=== PATIENT | female | born 1980 | race Caucasian/White ===

== ENCOUNTER 2025-05-22 14:56 | Emergency (ER) | payer OTHER, SELFPAY ==
--- NOTE | ~2025-05-22 | XR_ITS ---
XR hand LT min 3V Ordering provider: Dale Villegas APRN History: . injury 1 hr ago, medial posterior swelling 5th mcp . Comparison: None. FINDINGS: BONES: No acute fracture or dislocation. JOINT SPACES: Well maintained. SOFT TISSUES: Unremarkable. IMPRESSION: No acute osseous abnormality left hand. Reviewed, dictated and finalized at location A.
--- OUTSIDE RECORDS SUMMARY | 2025-05-22 14:59 | XMS_ITS | Patient Health Record ---
Author Organization [facility] Address [address] [place] [address] Care Team Providers Care Assembler Carbon Brushes Name Role Phone Luis Monsalve Primary Care Provider [phone] Allergies Allergen (clinical drug ingredient) Drug/Non Drug Allergy documented on EMR Reaction Allergy Type Onset Date Status ibuprofen Ibuprofen Unknown Drug Allergy Active Penicillin Unknown Drug Allergy Active Substance with sulfonamide structure and antibacterial mechanism of action (substance) Sulfa Antibiotics Unknown Drug Allergy Active tramadol Tramadol Unknown Drug Allergy Active Reason For Referral No Information Medications Medication SIG (Take, Route, Frequency, Duration) Notes Start Date End Date Status lamoTRIgine 25 MG 1 tablet (25mg) once daily for 14 days, THEN INCREASE to 2 tablets (50mg) once daily Orally; Duration: 30 days 03/01/2025 Active hydrOXYzine HCl 50 MG 1 tablet up to 4 t imes daily as needed for anxiety/sleep - take THIS BEFORE using alprazolam Orally; Duration: 30 days 03/01/2025 Active Cetirizine HCl 10 MG 1 tablet Orally Onc e a day Active Incruse Ellipta 62.5 MCG/ACT 1 puff Inhalation Once a day Active Albuterol Sulfate HFA 108 (90 Base) MCG/ACT 1 puff as needed Inhalation every 4 hrs Active Gabapentin 300 MG 1 capsule twice vahid y Orally Active Fluticasone Propionate 50 MCG/ACT 1 spray in each nostril Nasally Twice a day Active Atorvastatin Calcium 40 MG 1 tablet Oral ly Once a day Active tiZANidine HCl 4 MG 1 tablet twice daily as needed Orally Active ALPRAZolam 0.5 MG 1 tablet once daily as needed for SEVERE anxiety/panic Orally 03/01/2025 Active Omeprazole 20 MG 1 capsule 1/2 to 1 h our before morning meal Orally Once a day Active Social History Tobacco Use: Social History Observation Description Date Details (start date - stop date) Current Smoker NA - NA Tobacco Control (Standard) Question Answer Notes Tobacco use: Current smoker How often do you smoke cigarettes? Every day How many cigarettes a day do you smoke? 6-10 How soon after you wake up do you smoke your fir st cigarette? Within 5 minutes Are you interested in quitting? Not ready to lex t Problems Problem Type SNOMED Code ICD Code Onset Dates Problem Status W/U Status Risk Notes Problem Mood disorder (13004923) Mood disorder (F39) Active confirmed Problem Posttraumatic stress disorder (27723530) PTSD (post-traumati c stress disorder) (F43.10) Active confirmed Problem Generalized anxiety disorder (54876753) SANDIE (generalized anxiety disorder) (F41.1) Active confirmed Problem Major depressive disorder (478822701) MDD (major depressive disorder) (F32.9) Active confirmed Problem Nicotine dependence (31291256) Nicotine dependence (F17.200) Active confirmed Vital Signs Height 5ft 3in in 03/01/2025 Weight 270 lbs 03/01/2025 BMI 47.82 kg/m2 03/01/2025 Encounters Encounter Location Date Provider Diagnosis [address] [address] 03/01/2025 Luis Monsalve Mood disorder F39 ; SANDIE (generalized anxiety disorder) F41.1 ; MDD (major depressive disorder) F32.9 ; PTSD (post-traumatic stress disorder) F43.10 and Nicotine dependence F17.200 Assessments Encounter Date Diagnosis (ICD Code) Assessment Notes Treatment Notes Treatment Clinical Notes Section Notes 03/01/2025 Mood disorder (ICD-10 - F39) Duration (acute/chronic), stability (controlled/uncon trolled): Chronic, uncontrolled Current medications/effic acy: No Previous medication trials: alprazolam, escitalopram and numerous other medications similar (cannot remember names), reports medications like escitalopram zombified me Current/previous therapies: Not currently or previously, interested Examination as documented - see pertinent aspects of office visit documentation. Pertinent diagnostics: NOT DISCUSSED DUE TO TIME CONSTRAINTS, WILL DISCUSS AT FUTURE VISIT - PATIENT HAS PCP Differential diagnoses: suspect BPD vs mixed anxiety/depressio n vs complex PTSD vs bipolar spectrum vs combination thereof RECOMMENDATIONS: START lamotrigine as prescribed to assist with mood/stability, hoping this will help with anger/irritabilit y, as well as depression and anxiety - educated patient/guardian on adverse effects, risks and benefits, as well as alternative treatments TAKE gabapentin twice daily on a scheduled as discussed to assist with anxiety/panic - educated patient/guardian on adverse effects, risks and benefits, as well as alternative treatments START hydroxyzine as prescribed to assist with anxiety/panic/sle ep - educated patient/guardian on adverse effects, risks and benefits, as well as alternative treatments START low dose alprazolam as prescribed, ONLY NEEDED, taper when able - educated patient/guardian on adverse effects, risks and benefits, as well as alternative treatments Continue/modify other medications as prescribed - educated patient/guardian on adverse effects, risks and benefits, as well as alternative treatments Consume well balanced diet, preferably low in saturated fats (solid at room temperature, such as butter, margarine, Crisco, etc) and low in sodium (<2,000mg per day). Consume plenty of fruits/vegetables , healthy grains/whole grains, unsaturated/healt hy fats (liquid at room temperature, such as olive oil, sunflower seed oil, canola, vegetable, etc.). Exercise regularly - Develop an exercise routine. 30 minutes of moderate exercise (walking at a brisk pace) 5 times per week is recommended. You should work hard enough to cause a sweat but still be able to talk with others while exercising. Exercise improves overall health - improves blood pressure and blood sugar, helps control weight, reduces stress, and improves mood. Practice stress reduction techniques, such as guided imagery, journaling, aromatherapy, acupuncture/acupr essure, deep breathing, etc. Practice healthy sleep hygiene - maintain regular routine, no caffeine after 1PM, no exercise 1-2 hours prior to bedtime, keep bedroom dark and cool, no TV or electronics while in bed. Consider melatonin as needed. Consider cognitive behavioral therapy for insomnia (CBT-I). Consider/Continue therapy. Consider/Continue substance cessation therapy as needed - contact office if desiring medication assisted therapy. Manage co-morbid conditions. Continue monitoring symptoms - report persistent or worsening/concern ing symptoms to the office or go to the ER. For mental health CRISIS, please reach out to 988 (National Suicide and Crisis Lifeline), 911, go to the emergency department, or contact the [facility] Crisis Unit/Team. Follow up as scheduled in 3 weeks or sooner if necessary. Follow up with PCP and/or other specialists as advised. NEXT STEP: Consider medication adjustments as needed. 03/01/2025 SANDIE (generalized anxiety disorder) (ICD-10 - F41.1) See assessment and plan for mood disorder possible OCD 03/01/2025 MDD (major depressive disorder) (ICD-10 - F32.9) See assessment and plan for mood disorder 03/01/2025 PTSD (post-traumatic stress disorder) (ICD-10 - F43.10) See assessment and plan for mood disorder 03/01/2025 Nicotine dependence (ICD-10 - F17.200) Duration (acute/chronic), stability (controlled/uncon trolled): Cigarettes, about 1 pack daily, has been smoking more recently, has been smoking since about age 13-14 - verbalized no intention to quit at this time Current medications/effic acy: N/A Previous medication trials: N/A RECOMMENDATIONS: Consider/Continue therapy. Consider/Continue substance cessation therapy as needed - contact office if desiring medication assisted therapy. Manage co-morbid conditions. Continue monitoring symptoms - report persistent or worsening/concern ing symptoms to the office or go to the ER. For mental health CRISIS, please reach out to 988 (National Suicide and Crisis Lifeline), 911, go to the emergency department, or contact the [facility] Crisis Unit/Team. Follow up as scheduled or sooner if necessary. Follow up with PCP and/or other specialists as advised. NEXT STEP: Consider MAT as needed. Plan Of Treatment No Information Insurance Providers Payer Name Payer Address Payer Phone Subscriber Number Group Number Insured Name Patient Relationship to Insured Coverage Start Date Coverage End Date [employer] [facility] [employer] Claims Department [address] [place] [address] [phone] [id number] Ivette Bullock Self - patient is the insured 5 [employer] Claims Department [address] [place] [address] [phone] [id number] Ivette Bullock Self - patient is the insured 5 Medical (General) History Medical History History ICD Code fibromyalgia Anxiety disorder depression Surgical History Surgery Date(Month/Year) gallbladder tumor broke right arm surgery
--- OUTSIDE RECORDS SUMMARY | 2025-05-22 14:59 | XMS_ITS | Continuity of Care Document ---
Author Organization [facility] Address [address] [place] [address] Phone Care Team Providers Care Oracle Ebs Architect Name Role Phone Anoop Walters MD Unavailable Unavailable Allergies, Adverse Reactions, Alerts Substance Reaction Status Criticality Sulfa (Sulfonamide Antibiotics) Active No Information Medications Medication Instructions Dosage Effective Dates (start - stop) Status Comments Vistaril 50 mg capsule take 1 capsule (50MG) by oral route every bedtime 50 MG - Active Procedures Procedure Date PREV VISIT, [facility], AGE 18-39 Advance Directives Directive Yes / No Effective Date File Name No Information Encounters Encounter Description Practice Location Reason(s) For Visit Diagnoses Date Provider Providers Copied on Encounter PREV VISIT, NEW, AGE 18-39 [facility], [address] [place] [address], [id number], tel:[phone] [facility] Physical (chief complaint) Dietary surveillance and counselingRoutine Medical ExamRoutine Medical Exam 4 Romeo Davalos. [address] [place], [place], [id number] , [place]. tel:[phone] Family History Family Member Type Diagnosis Age At Onset Father Problem (finding) Diabetes mellitus Mother Problem (finding) Diabetes mellitus Father Problem (finding) Coronary artery disease 53 Father Problem (finding) COPD Sister Problem (finding) Alive and well Mother Problem (finding) Hypertension Payers Payer name Insurance type Covered constitution party ID Authoriza tion(s) No Information Social History Type Description Quantity Date Captured Comments Alcohol Use Details Caffeine Use Details Unknown Tobacco Use Status No Information Smoking Status Current every day smoker Smoking Tobacco Use Details Cigarette: No Details Available Cigarette: 1 Packs per day Sex Female Vital Signs Date / Time: Height Weight BMI Pulse Rate Blood Pressure Temperature Respiratory Rate Body Surface Area Head Circumference BMI percentile Pulse Ox Inhaled Ox 5:01 PM 64.00 in 229.00 lbs 39.3 0 kg/m eter (2) 84 /min 125/88 mm[Hg] 98.9 F 18 /min Chief Complaint And Reason For Visit From encounter dated '07/10/2014 16:50'. Physical (chief complaint) Plan Of Treatment Date Type Action Status Goal Tobacco cessation counseling completed Referral Ordered: Physical Therapy ordered Referral Referred To: Physical Therapy Ordered: Referral: Physical Therapy. ordered Referral Ordered: LUMBAR XRAY AP AND LAT ONLY ordered Referral Ordered: MOTOR NERVE CONDUCTION TEST ordered History Of Present Illness Encounter Date Complaint History Of Prese nt Illness No Information Instructions Date Instruction Additional Infor rosemary Dietary counseling Related to Di etary surveillance counseling Decrease caloric intake Related to Dietary surveillance counseling Assessments Type Assessment Date No Information Mental Status Date Cognitive Assessment Orientation - [address] ed to time, place, person, situation.
[2025-05-22 15:06] VITALS: BP 147/95; PULSE 89; RESP 18; TEMP 36.6; O2SAT 99
--- OUTSIDE RECORDS SUMMARY | 2025-05-22 15:06 | XMS_ITS | Continuity of Care Document ---
Author Organization [facility] Address [address] [employer] [facility] [place] [address] Phone Care Team Providers Care Signal Engineer Name Role Phone Anoop Walters MD Unavailable Unavailable Allergies, Adverse Reactions, Alerts Substance Reaction Status Criticality Sulfa (Sulfonamide Antibiotics) Active No Information Medications Medication Instructions Dosage Effective Dates (start - stop) Status Comments Vistaril 50 mg capsule take 1 capsule (50MG) by oral route every bedtime 50 MG - Active Procedures Procedure Date PREV VISIT, [facility], AGE 18-39 Advance Directives Directive Yes / No Effective Date File Name No Information Encounters Encounter Description Practice Location Reason(s) For Visit Diagnoses Date Provider Providers Copied on Encounter PREV VISIT, NEW, AGE 18-39 [facility], [address] [place] [address], [id number], tel:[phone] [facility] Physical (chief complaint) Dietary surveillance and counselingRoutine Medical ExamRoutine Medical Exam 4 Romeo Davalos. [address] [place], [place], [id number] , [place]. tel:[phone] Family History Family Member Type Diagnosis Age [...] Mental Status Date Cognitive Assessment Orientation - [place] ed to time, place, person, situation.
--- OUTSIDE RECORDS SUMMARY | 2025-05-22 15:06 | XMS_ITS | Clinical Summary ---
Author Organization [facility] Address [address] [place] [address] Phone Care Team Providers Care Terrazzo Tile Maker Name Role Phone Candida Bob APRN, COPY AND PRINT ASSOCIATE Primary Care Provider Allergies Active Allergy Reactions Criticality Noted Date Comments Ibuprofen Unknown 09/08/2021 Penicillin G Rash 09/08/2021 Sulfa Antibiotics Unknown 09/08/2021 Medications albuterol 108 (90 Base) MCG/ACT Aerosol Solution take 2 Puffs by inhalation every 6 hours as needed for Cough. 6.7 g 2 Active ofloxacin (Floxin Otic) 0.3 % Solution Place 5 Drops in affected ear(s) 2 times daily. 10 mL 2 Active diclofenac (VOLTAREN) 50 MG Tablet Delayed Response Take 1 Tablet by mouth 3 times daily. 20 Tablet 2 Active Additional Information Patient not taking.Reported on 01/15/2025 HYDROcodone-acet aminophen (NORCO) 5-325 MG TabletIndication s:Pain, dental Take 1 Tablet by mouth every 6 hours as needed for Mild or more severe pain. 12 Tablet 2 Active Additional Information Patient not taking.Reported on 01/15/2025 ondansetron (ZOFRAN-ODT) 4 MG TABLET DISPERSIBLE Take 1 Tablet by mouth every 8 hours as needed for Nausea - 1st line. 10 Tablet 3 Active Additional Information Patient not taking.Reported on 01/15/2025 atorvastatin (LIPITOR) 40 MG Tablet Take 40 mg by mouth daily. Active Cetirizine HCl 10 MG Chewable Tablet Take 10 mg by mouth daily. Active fluticasone (FLONASE) 50 MCG/ACT Suspension 2 Sprays by Nasal route. 0 Active ofloxacin (OCUFLOX) 0.3 % Solution Place 1 Drop in affected eye(s) 4 times daily. Active Umeclidinium [place] (Incruse Ellipta) 62.5 MCG/ACT AEROSOL POWDER, BREATH ACTIVATED take 1 Puff by inhalation daily. Active Social History Tobacco Use Types Packs/Day Years Used Date Smoking Tobacco: Every Day Cigarettes Smokeless Tobacco: Never Alcohol Use Standard Drinks/Week Comments Never 0 (1 standard drink = 0.6 oz pur e alcohol) Comments No Sex and Gender Information Value Date Recorded Sex Assigned at Not on file Legal Sex Female 11:56 PM CDT Gender Identity Not on file Sexual Orientation Not on file Last Filed Vital Signs Vital Sign Reading Time Taken Comments Blood Pressure 138/70 02/19/2025 5:40 PM CDT Pulse 82 02/19/2025 5:40 PM CDT Temperature 36.9 C (98.4 F) 02/19/2025 5:40 PM CDT Respiratory Rate 18 02/19/2025 5:40 PM CDT Oxygen Saturation 99% 02/19/2025 5:40 PM CDT Inhaled Oxygen Concentration - - Weight 117.9 kg (260 lb) 02/19/2025 5:40 PM CDT Height 160 cm (5' 3) 02/19/2025 5:40 PM CDT Body Mass Index 46.06 02/19/2025 5:40 PM CDT Plan of Treatment Upcoming Encounters Date Type Department Care Team (Late st Contact Info) Description 08/14/2025 10:00 AM CDT Office Visit [facility] - Neurology [facility] [address] [place] [address] Walter Rios MD [address] [place] [address] Health Maintenance Due Date Last Done Comments Hepatitis C Virus (HCV) Screening 1979 Mammogram 1979 TdaP Immunization 1979 Human Papillomavirus (HPV) Immunization (1 - 3-dose series) 1994 Hepatitis B Immunization (1 of 3 - 19+ 3-dose series) 1998 Pneumococcal Immunization Co mbined (1 of 2 - PCV) 1998 Pap Smear 2000 Cervical Cancer Screening (CCS) 2009 HPV/Cotest 2009 Discussion re Starting/Frequ ency of Mammograms 2019 SARS-COV-2 Immunization ( - 2023- season) 2024 Cologuard 2024 Colonoscopy 2024 Colorectal Cancer Screening 2024 Immunochemical Fecal Occult Blood 2024 Influenza Immunization (#1) 2025 Respiratory Syncytial Virus (RSV) Immunization (Adult) (1 - 1-dose 75+ series) 2054 DTaP/Tdap/Td Immunization Discontinued 04/14/2005 Meningococcal Immunization (ACWY) Aged Out No longer eligible based on patient's age to complete this topic Rotavirus Immunization Aged Out No lo nger eligible based on patient's age to complete this topic Insurance MEDICAID [employer] Care Teams Terrazzo Tile Maker Relationship Specialty Start Date End Date Candida Bob, MASH FILTER CLOTH CHANGER, COPY AND PRINT ASSOCIATE [address] [place] [address] PCP - General Advanced Practice Nurse 4/22/25
--- OUTSIDE RECORDS SUMMARY | 2025-05-22 15:07 | XMS_ITS | Encounter Summary ---
Author Organization [facility] Address [address] [place] [address] Care Team Providers Care College Associate Name Role Phone Candida Bob CRIB CLERK Primary Care Provider Encounter Details Date Type Department Care Team ([facility] st Contact Info) Description 05/22/2025 Plan of Care Documentation [facility] Physical Therapy [address] [place] [id number] Social History Tobacco Use Types Packs/Day Years Used Date Smoking Tobacco: Every Day Cigarettes Smokeless Tobacco: Never Alcohol Use Standard Drinks/Week Comments Not Currently 0 (1 standard drink = 0.6 oz pur e alcohol) AUDIT-C Answer Date Recorded Frequency of Alcohol Consumption Not on file 03/20/2024 Q2: How many drinks containi ng alcohol do you have on a typical day when you are drinking? Patient does not drink Frequency of Binge Drinking Not on file 03/08 Personal Safety Answer Date Recorded Have you ever been in or are you currently in a harmful physical or emotional relationship or is someone making you feel afraid or unsafe? Denies 02/20/2025 Comments No Sex and Gender Information Value Date Recorded Sex Assigned at Not on file Legal Sex Female 4:41 PM HALL WORKER Gender Identity Not on file Sexual Orientation Not on file documented as of this encounter Plan of Treatment Not on file documented as of this encounter Visit Diagnoses Not on filedocumented in this encounter Care Teams College Associate Relationship Specialty Start Date End Date Candida Bob, BHAVESH [address] [address] PCP - General Nurse Practitioner 02/20/25 documented as of this encounter
--- OUTSIDE RECORDS SUMMARY | 2025-05-22 15:07 | XMS_ITS | Referral Summary ---
Author Organization [facility] Address [address] [place] [address] Care Team Providers Care Airconditioning Engineer Name Role Phone Candida Bob NP Primary Care Provider Encounters Date Type Department Care Team Description 05/22/2025 Plan of Care Documentation [facility] [address] [place] [id number] 05/22/2025 8:15 AM CDT Therapy [facility] [address] [place] [address] [phone] Jagruti Blevins, PT Electrocution, subsequent encounter (Primary Dx); Other symptoms and signs involving the musculoskeletal system 05/15/2025 8:45 AM CDT Therapy [facility] [address] [place] [address] [phone] Aleta Zhao, PT Electrocution, subsequent encounter (Primary Dx) 05/03/2025 7:45 AM CDT Therapy [facility] [address] [place] [address] [id number] Aleta Zhao, PT Electrocution, subsequent encounter (Primary Dx) 05/03/2025 12:54 PM CDT - 05/03/2025 11:59 PM CDT Hospital Encounter [facility] [address] [place] [address] [phone] Other forms of dyspnea; Personal history of COVID-19; Electric shock, initial encounter; Precordial pain Discharge Disposition: Discharge to home or self care 04/11/2025 10:00 AM CDT Therapy [facility] [address] [place] [address] [phone] Savannah Sawant, WILLIAMS Electrocution, subsequent encounter (Primary Dx); Cognitive impairment 04/11/2025 11:00 AM CDT Therapy [facility] [address] [place] [address] [phone] Jagruti Blevins, PT Electrocution, subsequent encounter (Primary Dx); Other symptoms and signs involving the musculoskeletal system 04/09/2025 11:00 AM CDT Therapy [facility] [address] [place] [address] [id number] Jagruti Blevins, PT Electrocution, subsequent encounter (Primary Dx); Other symptoms and signs involving the musculoskeletal system 04/05/2025 Plan of Care Documentation [facility] [address] [place] [address] [id number] 04/04/2025 9:30 AM CDT Therapy [facility] [address] [place] [address] [id number] Savannah Sawant, WILLIAMS Cognitive impairment (Primary Dx); Electrocution, subsequent encounter 04/03/2025 10:15 AM CDT Therapy [facility] [address] [place] [address] [id number] Jagruti Blevins, PT Electrocution, subsequent encounter (Primary Dx); Other symptoms and signs involving the musculoskeletal system 03/28/2025 10:30 AM CDT Therapy [facility] [address] [place] [address] [phone] Aleta Zhao, PT Electrocution, subsequent encounter (Primary Dx) 03/26/2025 11:15 AM CDT Therapy [facility] [address] [place] [address] [id number] Aleta Zhao, PT Other symptoms and signs involving the musculoskeletal system (Primary Dx); Electrocution, subsequent encounter 03/12/2025 11:00 AM CDT Therapy [facility] [address] [place] [address] [phone] Jagruti Blevins, PT Other symptoms and signs involving the musculoskeletal system (Primary Dx) 03/01/2025 Plan of Care Documentation [facility] [address] [place] [address] [id number] 03/01/2025 8:30 AM CDT Therapy [facility] [address] [place] [address] Jagruti Blevins, PT Electrocution, subsequent encounter (Primary Dx) 03/01/2025 1:15 PM CDT - 03/01/2025 11:59 PM CDT Hospital Encounter [facility] [address] [place] [address] Electrocution, subsequent encounter Discharge Disposition: Discharge to home or self care 02/28/2025 Telephone [facility] [address] [place] [address] Dawna Manzano 02/20/2025 3:13 PM CDT - 02/20/2025 4:08 PM CDT Emergency [facility] [address] [place] [address] Electrocution (Primary Dx); Left cervical radiculopathy Discharge Disposition: Discharge to home or self care from Last 3 Months Allergies Active Allergy Reactions Criticality Noted Date Comments Ibuprofen Unknown 09/20/2019 Penicillin Hives Medium 04/23/2016 Sulfa (Sulfonamide Antibiotics) Hives Medium 04/23/2016 Sulfamethoxazole-Trime thoprim Other (See comments) Low 05/18/2009 Note: PT STATES SHE ONLY ALLERGIC TO THIS NOT , CODINE, ERR, VICODEN OR DARVOCET . [facility] Medium 04/23/2016 Medications fluticasone propionate (FLONASE) 50 mcg/actuation nasal sprayIndications: Seasonal allergic rhinitis due to pollen Administer 2 sprays into each nostril daily 16 g 05/19/20 22 Active cetirizine (ZyrTEC) 10 mg tabletIndications :Seasonal allergic rhinitis due to pollen Take 1 tablet (10 mg total) by mouth daily 30 tablet 05/19/20 22 Active ergocalciferol (VITAMIN D) 50,000 unit capsule Take 1 capsule every week by oral route. 01/25/20 24 Active atorvastatin (LIPITOR) 40 mg tablet Take 1 tablet every day by oral route. 01/25/[address] (NexIUM) 20 mg capsule Take 1 capsule (20 mg total) by mouth daily before breakfast Active oxyCODONE-acetami nophen (PERCOCET) 5-325 mg per tablet Take 1 tablet by mouth every 8 (eight) hours as needed for pain 20 tablet 03/28/20 24 Active Narcan 4 mg/actuation spray,non-aerosol 03/20/20 24 Active triamcinolone (KENALOG) 0.1 % cream APPLY TOPICALLY TO THE AFFECTED AREA TWICE DAILY NEEDED FOR ITCHING 03/29/20 24 Active methocarbamoL (ROBAXIN) 500 mg tabletIndications :Left cervical radiculopathy Take 1 tablet (500 mg total) by mouth 3 (three) times a day Take as directed to relax muscles. Collaborating physician Alexey Davalos MD 30 tablet 02/21/20 25 Active Active Problems Problem Noted Date Diagnosed Date Generalized anxiety disorder 03/26/2025 Posttraumatic stress disorder 03/26/2025 Major depressive disorder 03/26/2025 Mood disorder 03/26/2025 Nicotine dependence 03/26/2025 Class 3 severe obesity due t o excess calories with serious comorbidity and body mass index (BMI) of 45.0 to 49.9 in adult 03/26/2025 COPD (chronic obstructive pulmonary disease) Fibromyalgia 03/26/2025 Rheumatoid arthritis 03/26/2025 Mixed hyperlipidemia 03/26/2025 Electrocution 02/20/2025 Left cervical radiculopathy 02/20/2025 Gallstones 03/08/2024 Cervical lymphadenitis 01/19/2024 Chest wall muscle strain, initial encounter 04/09 Seasonal allergic rhinitis due to pollen 022 Assessment & Plan (05/19/2022 3:34 PM CDT): Flonase 2 sprays into each nostril while looking down over the sink, do not sniff in or blow nose after use for at least 30 minutes Cetirizine daily Blood allergy testing, call with results Dysfunction of both eustachian tubes 10/15/2020 Acute exacerbation of chronic low back pain 07/09 Right-sided low back pain with right-sided sciat ica 07/25/2020 Resolved Problems Problem Noted Date Diagnosed Date Resolved Date Acute right otitis media 01/19/2024 Acute bronchitis 05/03/2023 03/26/2025 Acute maxillary sinusitis 10/15/2020 Immunizations Immunization Administration Dates Next Due Hep A, Adult 09/28/2000 Td, adsorbed 04/14/2005 Social History Tobacco Use Types Packs/Day Years Used Date Smoking Tobacco: Every Day Cigarettes Smokeless Tobacco: Never Tobacco Cessation:Ready to Q uit: Not Asked; Counseling Given: Not Answered Alcohol Use Standard Drinks/Week Comments Not Currently [...] on file 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 Gender Identity Not on file Sexual Orientation Not on file Last Filed Vital Signs Vital Sign Reading Time Taken Comments Blood Pressure 124/87 02/20/2025 4:07 PM CDT Pulse 84 02/20/2025 4:07 PM CDT Temperature 36.8 C (98.3 F) 02/20/2025 1:56 PM CDT Respiratory Rate 18 02/20/2025 4:07 PM CDT Oxygen Saturation 98% 02/20/2025 4:07 PM CDT Inhaled Oxygen Concentration - - Weight 117.9 kg (260 lb) 02/20/2025 1:56 PM CDT Height 160 cm (5' 3) 04/02/2024 3:49 PM CDT Body Mass Index 46.06 04/02/2024 3:49 PM CDT Plan of Treatment Not on file Procedures Procedure Name Priority Date/Time Associated Diagnosis Comments TRANSTHORACIC ECHO (TTE) COMPLETE W DOPPLER/CF WO CONTRAST Routine 05/03/2025 2:12 PM CDT Other forms of dyspnea Personal history of COVID-19 Electric shock, initial encounter Precordial pain CTA HEAD NECK W WO CONTRAST Schedule SJ, Read SJ (Appt Today, Awaiting Results) 03/01/2025 2:06 PM CDT Electrocution, subsequent encounter EGFR STAT 02/20/2025 2:34 PM CDT DIFFERENTIAL AUTO STAT 02/20/2025 2:3 4 PM CDT COMPREHENSIVE METABOLIC PANEL STAT 02/20/2025 2:34 PM CDT CBC WITH AUTO DIFFERENTIAL STAT 02/20/2025 2:34 PM CDT TROPONIN T HIGH-SENSITIVITY STAT 02/20/2025 2:34 PM CDT ECG 12-LEAD STAT 02/20/2025 2:28 PM CDT from Last 3 Months Results * TRANSTHORACIC ECHO (TTE) COMPLETE W DOPPLER/CF WO CONTRAST (05/03/2025 2:12 PM CDT) Estimated EF % % CONS SCIMAGE EF Mod BP 72 % CONS SCIMAGE Anatomical Region Laterality Modality Ultrasound 05/03/2025 1:25 PM CDT Narrative 05/03/2025 3:06 PM CDT [address] [address] Echocardiogram Report Patient Name: CURRY BRITT : 1980 Study Date: 05/03/2025 1:25:29 PM Gender: F Tech: AA Location: echo room 1 Ref Provider: TRANSCRIBED ORDER, PROVIDER Height(Cm): 160 BSA: 2.29 Weight(Kg): 117.9 Quality: Good Order Provider: TRANSCRIBED ORDER, PROVIDER PROCEDURES: Echocardiographic Report: Transthoracic echocardiogram with complete 2D, M-Mode, and color Doppler examination. INDICATIONS: sob, electricuted, R06.09 Other forms of dyspnea, Z86.16 Personal history of COVID-19, T75.4XXA Electrocution, initial encounter, and R07.2 Precordial pain. MEASUREMENTS: 2D/MM Value Range Doppler Value Range EF Teich 2D 43.1 % [ 54.0 - 74.0 ] JOSEPH Vmax 3.19 cm2 EF Mod BP 72 % [ 54 - 74 ] AV Mean PG 4 mmHg Estimated EF % AV Peak John 1.43 m/s [ 1.00 - 1.70 ] LVIDd 2D 3.71 cm [ 3.80 - 5.20 ] AV VTI 24.64 cm LVIDs 2D 2.94 cm [ 2.20 - 3.50 ] LVOT Diam 2.20 cm LVPWd 2D 1.27 cm [ 0.60 - 0.90 ] LVOT Peak John 1.20 m/s [ 0.70 - 1.10 ] IVSd 2D 1.12 cm [ 0.60 - 0.90 ] LVOT VTI 23.05 cm LA Dimension MM 4.22 cm [ 2.70 - 3.80 ] MV E Peak John 0.78 m/s [ 0.60 - 1.30 ] AoR Diam MM 3.44 cm [ 2.70 - 3.70 ] MV A Peak John 0.72 m/s [ 1.00 - 1.20 ] ACS MM 2.42 cm MV Mean PG 2 mmHg MV PHT 59 msec [ 20 - 100 ] MVA 3.80 MV Decel Time 204 msec [ 104 - 258 ] PV Peak John 1.02 m/s [ 0.40 - 0.80 ] TR Peak John 2.19 m/s [ 1.00 - 2.80 ] TR Peak PG 19 mmHg RVSP 24.00 mmHg [ 10.00 - 36.00 ] E` 0.13 m/s E/E` 5.83 [ <= 10.00 ] PA Pressure 5.00 mmHg [ 10.00 - 36.00 ] 2D/MM Value Range Doppler Value Range - FINDINGS: Atrial Septum: Normal atrial septum. Left Ventricle: Normal left ventricular size. Mild concentric left ventricular hypertrophy. Hyperdynamic left ventricular function. No focal wall motion abnormalities. Normal left ventricular diastolic function. Ejection fraction is measured at 72 %. Left Atrium: There is mild enlargement of left atrium. Right Ventricle: Normal right ventricular size. Normal right ventricular systolic function. Right Atrium: The right atrium is normal in size. Aortic Valve: Normal structure of the aortic valve. No evidence of hemodynamically significant aortic stenosis by Doppler. Mitral Valve: Normal structure of the mitral valve. Trivial regurgitation of the mitral valve. Pulmonic Valve: Normal structure of the pulmonic valve. No evidence of pulmonic regurgitation. Tricuspid Valve: Normal structure of the tricuspid valve. Normal right ventricular systolic pressure. Trivial regurgitation in the tricuspid valve. Pericardium: Normal pericardium with no significant pericardial effusion. Aorta: Normal aortic root. Ascending aorta is normal. Descending aorta is normal. IVC: Normal size and normal respiratory collapse consistent with normal right atrial pressure (<5 mmHg). Pulmonary Artery: Pulmonary artery not well visualized. CONCLUSIONS: Normal left ventricular size. Mild concentric left ventricular hypertrophy. Hyperdynamic left ventricular function. No focal wall motion abnormalities. Normal left ventricular diastolic function. Ejection fraction is measured at 72 %. Normal right ventricular size. Normal right ventricular systolic function. There is mild enlargement of left atrium. Normal structure of the mitral valve. Trivial regurgitation of the mitral valve. Normal structure of the aortic valve. No evidence of hemodynamically significant aortic stenosis by Doppler. Normal structure of the tricuspid valve. Normal right ventricular systolic pressure. Trivial regurgitation in the tricuspid valve. Normal pericardium with no significant pericardial effusion. Electronically Signed By: Theresa Urrutia MD 05/03/2025 3:06:23 PM CDT Procedure Note Theresa Urrutia MD - 05/03/[address] [place] [address] Echocardiogram Report Patient Name: CURRY BRITT : 1980 Study Date: 05/03/2025 1:25:29 PM Gender: F Tech: AA Location: echo room 1 Ref Provider: TRANSCRIBED ORDER, PROVIDER Height(Cm): 160 BSA: 2.29 Weight(Kg): 117.9 Quality: Good Order Provider: TRANSCRIBED ORDER, PROVIDER PROCEDURES: Echocardiographic Report: Transthoracic echocardiogram with complete 2D, M-Mode, and color Dopplerexamination. INDICATIONS: sob, electricuted, R06.09 Other forms of dyspnea, Z86.16 Personal historyof COVID-19, T75.4XXA Electrocution, initial encounter, and R07.2 Precordial pain. MEASUREMENTS: 2D/MM Value Range Doppler ValueRange EF Teich 2D 43.1 % [ 54.0 - 74.0 ] JOSEPH Vmax 3.19cm2 EF Mod BP 72 % [ 54 - 74 ] AV Mean PG 4 mmHg Estimated EF % AV Peak John 1.43 m/s[ 1.00 - 1.70 ] LVIDd 2D 3.71 cm [ 3.80 - 5.20 ] AV VTI 24.64cm LVIDs 2D 2.94 cm [ 2.20 - 3.50 ] LVOT Diam 2.20cm LVPWd 2D 1.27 cm [ 0.60 - 0.90 ] LVOT Peak John 1.20 m/s[ 0.70 - 1.10 ] IVSd 2D 1.12 cm [ 0.60 - 0.90 ] LVOT VTI 23.05cm LA Dimension MM 4.22 cm [ 2.70 - 3.80 ] MV E Peak John 0.78 m/s[ 0.60 - 1.30 ] AoR Diam MM 3.44 cm [ 2.70 - 3.70 ] MV A Peak John 0.72 m/s[ 1.00 - 1.20 ] ACS MM 2.42 cm MV Mean PG 2 mmHg MV PHT 59 msec [ 20 - 100 ] MVA 3.80 MV Decel Time 204 msec [ 104 - 258 ] PV Peak John 1.02 m/s [ 0.40 - 0.80 ] TR Peak John 2.19 m/s [ 1.00 - 2.80 ] TR Peak PG 19 mmHg RVSP 24.00 mmHg [ 10.00 - 36.00 ] E` 0.13 m/s E/E` 5.83 [ <= 10.00 ] PA Pressure 5.00 mmHg [ 10.00 - 36.00 ] 2D/MM Value Range Doppler ValueRange - FINDINGS: Atrial Septum: Normal atrial septum. Left Ventricle: Normal left ventricular size. Mild concentric left ventricularhypertrophy. Hyperdynamic left ventricular function. No focal wall motion abnormalities. Normal leftventricular diastolic function. Ejection fraction is measured at 72 %. Left Atrium: There is mild enlargement of left atrium. Right Ventricle: Normal right ventricular size. Normal right ventricular systolicfunction. Right Atrium: The right atrium is normal in size. Aortic Valve: Normal structure of the aortic valve. No evidence of hemodynamicallysignificant aortic stenosis by Doppler. Mitral Valve: Normal structure of the mitral valve. Trivial regurgitation of the mitralvalve. Pulmonic Valve: Normal structure of the pulmonic valve. No evidence of pulmonicregurgitation. Tricuspid Valve: Normal structure of the tricuspid valve. Normal right ventricular systolicpressure. Trivial regurgitation in the tricuspid valve. Pericardium: Normal pericardium with no significant pericardial effusion. Aorta: Normal aortic root. Ascending aorta is normal. Descending aorta isnormal. IVC: Normal size and normal respiratory collapse consistent with normal rightatrial pressure (<5 mmHg). Pulmonary Artery: Pulmonary artery not well visualized. CONCLUSIONS: Normal left ventricular size. Mild concentric left ventricularhypertrophy. Hyperdynamic left ventricular function. No focal wall motion abnormalities. Normal leftventricular diastolic function. Ejection fraction is measured at 72 %. Normal right ventricular size. Normal right ventricular systolicfunction. There is mild enlargement of left atrium. Normal structure of the mitral valve. Trivial regurgitation of the mitralvalve. Normal structure of the aortic valve. No evidence of hemodynamicallysignificant aortic stenosis by Doppler. Normal structure of the tricuspid valve. Normal right ventricular systolicpressure. Trivial regurgitation in the tricuspid valve. Normal pericardium with no significant pericardial effusion. Electronically Signed By: Theresa Urrutia MD 05/03/2025 3:06:23 PM CDT us Provider Transcribed Order CV ECHO PROCEDURES Fi nal Result * CTA Head Neck W WO Contrast (03/01/2025 2:06 PM CDT) Anatomical Region Laterality Modality Head and Neck N/A Computed Tomogra phy 03/01/2025 2:20 PM CDT Narrative 03/01/2025 2:37 PM CDT EXAM DESCRIPTION: CTA HEAD NECK W WO CONTRAST REASON FOR STUDY: Electrocution subsequent encounter Left facial droop, slurred speech and unsteady gait since 02/20/25, patient unable to remove facial piercing TECHNIQUE: Axial images were first obtained through the brain without contrast. Axial dynamic scanning technique with dynamic contrast enhancement through the intracranial and extracranial carotid and vertebral arteries. Multiplanar reconstruction. All stenosis measurements are based on NASCET criteria. 3D MIP images rendered on scanning unit and reviewed at time of interpretation. Automated exposure control was used as a dose optimization technique for this examination. CONTRAST TYPE/DOSE: 100mL of IOVERSOL 350 MG IODINE/ML INTRAVENOUS SYRINGE injected via intravenous COMPARISON: None available. FINDINGS: BRAIN No intracranial hemorrhage or shift. The size and configuration of the ventricles and sulci normal for the patient's age. There is no hydrocephalus. The basilar cisterns are maintained. The bilateral globes are symmetric. Left sphenoid sinus right maxillary sinus floor polypoid mucosal thickening. Near completely opacified bilateral mastoid air cells subtle opacification of the left middle ear. The temporomandibular joints are symmetrically placed. No depressed calvarial fracture. CAROTID CTA Assessment is further limited by artifact relating to the patient's body habitus. There is a three-vessel aortic arch. The origins of the great vessels are patent. The right common carotid artery is patent. No significant plaque at the right carotid bifurcation/proximal cervical ICA, essentially 0% stenosis by NASCET criteria. Medialized course of the proximal right cervical ICA, patent to the level of the skull base. The left common carotid artery is patent. No significant plaque at the left carotid bifurcation/proximal cervical ICA, essentially 0% stenosis by NASCET criteria. The remainder of the left cervical ICA is patent to the level of the skull base. The right vertebral artery is diminutive in caliber when compared to the contralateral side from its origin to the level of the skull base and commonly developmental. Portions of the bilateral vertebral arteries are not well visualized due to artifact relating to patient's body habitus. Both vertebral arteries are grossly patent from their origin to the level of the skull base. Lung apices with pulmonary emphysema. No focal pneumonic consolidation. The dental amalgam related streak artifact limits the assessment of the adjacent structures including the oral cavity and oropharynx. Multiple of the bilateral teeth are missing. Note made of a few nonspecific bilateral cervical chain lymph nodes. For example right level 2A 1.1 x 0.8 cm. INTRACRANIAL VESSELS The evaluation is limited by the timing of the contrast bolus. The right internal carotid artery petrous, cavernous and supraclinoid segments are patent. The left in internal carotid artery petrous, cavernous and supraclinoid segments are patent. The right anterior and middle cerebral artery proximal branches are patent. The left anterior and middle cerebral artery proximal branches are patent. The intradural segment of the non dominant right vertebral artery becomes even smaller in size after the origin of PICA. The dominant left vertebral artery is patent. The basilar artery is patent. The proximal segments of the bilateral posterior cerebral arteries are patent. IMPRESSION: BRAIN: 1. No acute intracranial hemorrhage or midline shift. 2. Further evaluation with MRI as clinically indicated. 3. Previous imaging studies are not available for comparison. An addendum can be made once priors are provided. INTRACRANIAL CTA: No intracranial large vessel occlusion. CAROTID CTA: 1. The bilateral common carotid arteries and cervical internal carotid arteries are patent. 2. The vertebral arteries are grossly patent. 3. Additional findings as above. THIS IS AN ELECTRONICALLY VERIFIED FINAL REPORT 03/01/2025 2:37 PM - Electronically signed by Steven Vazquez D.O. AP: AP Report ID: [id number] Reading Location: [id number] Procedure Note Steven Vazquez, DO - 03/01/2025 EXAM DESCRIPTION: CTA HEAD NECK W WO CONTRAST REASON FOR STUDY: Electrocution subsequent encounter Left facial droop, slurred speech and unsteady gait since 02/20/25, patient unable to remove facial piercing TECHNIQUE: Axial images were first obtained through the brain without contrast. Axial dynamic scanning technique with dynamic contrast enhancement throughthe intracranial and extracranial carotid and vertebral arteries. Multiplanar reconstruction. All stenosis measurements are based on NASCET criteria. 3D MIP images rendered on scanning unit and reviewed at time of interpretation. Automated exposure control was used as a dose optimization technique forthis examination. CONTRAST TYPE/DOSE: 100mL of IOVERSOL 350 MG IODINE/ML INTRAVENOUSSYRINGE injected via intravenous COMPARISON: None available. FINDINGS: BRAIN No intracranial hemorrhage or shift. The size and configuration of the ventricles and sulci normal for the patient's age. There is no hydrocephalus. The basilar cisterns are maintained. The bilateral globes are symmetric. Left sphenoid sinus right maxillarysinus floor polypoid mucosal thickening. Near completely opacified bilateral mastoid air cells subtle opacification of the left middle ear. The temporomandibular joints are symmetrically placed. No depressed calvarial fracture. CAROTID CTA Assessment is further limited by artifact relating to the patient's body habitus. There is a three-vessel aortic arch. The origins of the great vessels are patent. The right common carotid artery is patent. No significant plaque at theright carotid bifurcation/proximal cervical ICA, essentially 0% stenosis byNASCET criteria. Medialized course of the proximal right cervical ICA, patent tothe level of the skull base. The left common carotid artery is patent. No significant plaque at theleft carotid bifurcation/proximal cervical ICA, essentially 0% stenosis byNASCET criteria. The remainder of the left cervical ICA is patent to the levelof the skull base. The right vertebral artery is diminutive in caliber when compared to the contralateral side from its origin to the level of the skull base andcommonly developmental. Portions of the bilateral vertebral arteries are not well visualized due to artifact relating to patient's body habitus. Bothvertebral arteries are grossly patent from their origin to the level of the skullbase. Lung apices with pulmonary emphysema. No focal pneumonic consolidation.The dental amalgam related streak artifact limits the assessment of theadjacent structures including the oral cavity and oropharynx. Multiple of the bilateral teeth are missing. Note made of a few nonspecific bilateral cervical chain lymph nodes. For example right level 2A 1.1 x 0.8 cm. INTRACRANIAL VESSELS The evaluation is limited by the timing of the contrast bolus. The right internal carotid artery petrous, cavernous and supraclinoidsegments are patent. The left in internal carotid artery petrous, cavernous and supraclinoid segments are patent. The right anterior and middle cerebral artery proximal branches arepatent. The left anterior and middle cerebral artery proximal branches arepatent. The intradural segment of the non dominant right vertebral artery becomeseven smaller in size after the origin of PICA. The dominant left vertebralartery is patent. The basilar artery is patent. The proximal segments of the bilateral posterior cerebral arteries are patent. IMPRESSION: BRAIN: 1. No acute intracranial hemorrhage or midline shift. 2. Further evaluation with MRI as clinically indicated. 3. Previous imaging studies are not available for comparison. Anaddendum can be made once priors are provided. INTRACRANIAL CTA: No intracranial large vessel occlusion. CAROTID CTA: 1. The bilateral common carotid arteries and cervical internal carotid arteries are patent. 2. The vertebral arteries are grossly patent. 3. Additional findings as above. THIS IS AN ELECTRONICALLY VERIFIED FINAL REPORT 03/01/2025 2:37 PM - Electronically signed by Steven Vazquez D.O. AP: AP Report ID: [id number] Reading Location: [place] [address] Jorge Luis Johnson MD IMG CT PROCEDURES Final Resul t * Troponin T high-sensitivity (02/20/2025 2:34 PM CDT) Trop T hs <6 <=14 ng/L Comment: Interpretive Data For further hscTnT resources including the diagnostic algorithm and an aid in interpretation, copy and paste this link: https://nrl.testcatalog.org/show/hsTrop Current Interpretive Data last revised 2020. Blood 02/20/2025 2:34 PM CDT 02/20/2025 2:38 PM CDT Kush GRANT LAB BLOOD ORDERABLES Final R esult JOSE [facility] [place] 1 [facility] [place] [address] * eGFR (02/20/2025 2:34 PM CDT) eGFR >90 >=60 mL/min/1. 73 m2 Comment: Interpretive Data Reference Interval Normal >/= 90 mL/min/1.73m2 Mildly decreased* 60 - 89 mL/min/1.73m2 Mildly to moderately decreased 45 - 59 mL/min/1.73m2 Moderately to severely decreased 30 - 44 mL/min/1.73m2 Severely decreased 15 - 29 mL/min/1.73m2 Kidney Failure < 15 mL/min/1.73m2 *Relative to young adult level Estimated glomerular filtration rate is determined by the 2020 CKD-EPI equation recommended by the National Kidney Foundation (A Unifying Approach to GFR Estimation: Recommendations of the NKF-ASK Task Force on Reassessing the Inclusion of Race in Diagnosing Kidney Disease, JASN 2020). The CKD-EPI equation should not be used for patients with unstable renal function and has not been validated in children and those over 70. Current interpretive data was last reviewed 2021. Blood 02/20/2025 2:34 PM CDT 02/20/2025 2:38 PM CDT us Kush GRANT LAB BLOOD ORDERABLES Final R esult JOSE [facility] ([place]) 1 [facility] Department of Laboratories [place], [place] [id number] * (ABNORMAL) Differential, auto (02/20/2025 2:34 PM CDT) Pathologist [facility] Neutrophil abs 5.34 1.50 - 6.50 K/cumm Imm gran abs 0.05 0.00 - 0.10 K/cumm [facility]) Lymphocyte abs 2.93 0.80 - 3.30 K/cumm [facility] ([place]) Monocyte abs 0.50 0.20 - 0.80 K/cumm [facility]) Eosinophil abs 0.38 0.00 - 0.50 K/cumm [facility]) Basophil abs 0.16(H) 0.00 - 0.10 K/cumm [facility]) Neutrophil pct 57.1 % [facility] ([place]) Comment: Interpretive Data Percent cell count reference ranges are not reported, since discordance with absolute values may lead to misinterpretation of CBC data. Current Interpretive Data was last revised on 2018. Imm gran pct 0.5 % [facility] ([place]) Comment: Interpretive Data Percent cell count reference ranges are not reported, since discordance with absolute values may lead to misinterpretation of CBC data. Current Interpretive Data was last revised on 2018. Lymphocyte pct 31.3 % KEANU [facility] ([place]) Comment: Interpretive Data Percent cell count reference ranges are not reported, since discordance with absolute values may lead to misinterpretation of CBC data. Current Interpretive Data was last revised on 2018. Monocyte pct 5.3 % [facility] ([place]) Comment: Interpretive Data Percent cell count reference ranges are not reported, since discordance with absolute values may lead to misinterpretation of CBC data. Current Interpretive Data was last revised on 2018. Eosinophil pct 4.1 % KEANU [facility] ([place]) Comment: Interpretive Data Percent cell count reference ranges are not reported, since discordance with absolute values may lead to misinterpretation of CBC data. Current Interpretive Data was last revised on 2018. Basophil pct 1.7 % [facility] ([place]) Comment: Interpretive Data Percent cell count reference ranges are not reported, since discordance with absolute values may lead to misinterpretation of CBC data. Current Interpretive Data was last revised on 2018. Blood 02/20/2025 2:34 PM CDT 02/20/2025 2:38 PM CDT us Kush GRANT LAB BLOOD ORDERABLES Final R esult JOSE [facility]GD[facility] ([place]) 1 [facility] Department [place] [address] * (ABNORMAL) CBC with auto differential (02/20/2025 2:34 PM CDT) WBC 9.36 3.80 - 9.90 K/cumm Hgb 14.4 11.9 - 15.5 g/dL [facility] Hct 43.1 35.6 - 45.5 % [facility] Plt 281 150 - 400 K/cumm [facility]) MPV 9.2 9.1 - 12.3 fL [facility] RBC 4.63 3.90 - 5.20 M/cumm [facility]) MCV 93.1 81.3 - 96.4 fL [facility] MCH 31.1 27.1 - 33.3 pg [facility] MCHC 33.4 32.3 - 35.7 g/dL [facility] RDW CV 14.1 11.1 - 14.9 % [facility] RDW SD 47.6 35.7 - 48.1 fL [facility]) NRBC abs 0.02(H) 0.00 - 0.01 K/cumm [facility] Blood 02/20/2025 2:34 PM CDT 02/20/2025 2:38 PM CDT us Kush GRANT LAB BLOOD ORDERABLES Final R esult [facility] ([place] 1 [facility] [place] [address] * (ABNORMAL) Comprehensive metabolic panel (02/20/2025 2:34 PM CDT) Sodium 137 135 - 145 mmol/L Potassium, pl 3.8 3.3 - 4.9 mmol/L [facility] Chloride 105 97 - 110 mmol/L [facility] CO2 21(L) 22 - 32 mmol/L [facility] Anion gap 11 2 - 15 mmol/L [facility] BUN 7 6 - 25 mg/dL [facility] Creatinine 0.74 0.60 - 1.10 mg/dL [facility] Glucose 117 70 - 199 mg/dL [facility] Comment: Interpretive Data Fasting glucose >/= 126 mg/dl is diagnostic for diabetes. Fasting is defined as no caloric intake for at least 8 hours. Fasting glucose between 100 mg/dl to 125 mg/dl is diagnostic of prediabetes. In a patient with classic symptoms of hyperglycemia or hyperglycemic crisis, a random glucose >/= 200 mg/dl is diagnostic for diabetes. In the absence of unequivocal hyperglycemia, results should be confirmed by repeat testing. The classification and Diagnosis of Diabetes Diabetes Care 2021; 46: S19-S40. Current interpretive data was last revised 2022. Calcium 8.8 8.5 - 10.3 mg/dL [facility] Bilirubin, total <0.2 0.1 - 1.2 mg/dL [facility] Protein, pl 7.0 6.5 - 8.5 g/dL [facility]) Albumin 4.0 3.5 - 5.0 g/dL [facility] Alk phos 100 40 - 130 Units/L [facility] ALT 45 7 - 45 Units/L [facility] AST 34 10 - 45 Units/L [facility]) Comment:Slightly Hemolyzed S pecimen Blood 02/20/2025 2:34 PM CDT 02/20/2025 2:38 PM CDT us Kush GRANT LAB BLOOD ORDERABLES Final R esult [facility] ([place] 1 [facility] [place] [address] * ECG 12 lead (02/20/2025 2:28 PM CDT) 02/20/2025 2:28 PM CDT Narrative [facility] - 02/20/2025 4:09 PM CDT Vent Rate: 83 bpm RR Interval: 717 msec [place] Interval: 162 msec QRS Duration: 83 msec QT Interval: 356 msec QTC Interval: 396 msec P-R-T [place]: 25 - 4 - 19 degrees IMPRESSION: SINUS RHYTHM LOW QRS VOLTAGE IN PRECORDIAL LEADS [QRS DEFLECTION < 1.0 mV IN CHEST LEADS] BORDERLINE ECG NO CHANGE FROM PREVIOUS TRACING NOTED Electronically Signed By: Yonas Hebert MD us Kush GRANT ECG ORDERABLES Final Result [facility] from Last 3 Months Insurance [facility] Care Teams Airconditioning Engineer Relationship Specialty Start Date End Date Candida Bob NP [address] [place] [address] [place] [address] PCP - General Nurse Practitioner 02/20/25
--- OUTSIDE RECORDS SUMMARY | 2025-05-22 15:07 | XMS_ITS | Clinical Summary ---
Author Organization [facility] Address [address] [place] [address] Care Team Providers Care Food Trades Assistants Name Role Phone Candida Bob CONSTRUCTION PERSON Primary Care Provider Allergies Active Allergy Reactions Criticality Noted Date Comments Ibuprofen Unknown 09/20/2019 Penicillin Hives Medium 04/23/2016 Sulfa (Sulfonamide Antibiotics) Hives Medium 04/23/2016 Sulfamethoxazole-Trime thoprim Other (See comments) Low 05/18/2009 Note: PT STATES SHE ONLY ALLERGIC TO THIS NOT , CODINE, ERR, VICODEN OR DARVOCET . Tramadol Hives Medium 04/23/2016 Medications fluticasone propionate (FLONASE) 50 [...] bronchitis 05/03/2023 03/26/2025 Acute maxillary sinusitis 10/15/2020 Encounters Date Type Department Care Team Description 05/22/2025 8:15 AM CDT Therapy [facility] Physical Therapy [address] [place] [phone] Jagruti Blevins, PT Electrocution, subsequent encounter (Primary Dx); Other symptoms and signs involving the musculoskeletal system 05/22/2025 Plan of Care Documentation [facility] [address] [place] [phone] 05/15/2025 8:45 AM CDT Therapy [facility] [address] [place] [phone] Aleta Zhao PT Electrocution, subsequent encounter (Primary Dx) 05/03/2025 12:54 PM CDT - 05/03/2025 11:59 PM CDT Hospital Encounter [facility] Cardiology [address] [place] [phone] Other forms of dyspnea; Personal history of COVID-19; Electric shock, initial encounter; Precordial pain Discharge Disposition: Discharge to home or self care 05/03/2025 7:45 AM CDT Therapy [facility] [address] [place] [address] Aleta Zhao, CAMRYN Electrocution, subsequent encounter (Primary Dx) 04/11/2025 11:00 AM CDT Therapy [facility] [address] [place] [phone] Jagruti Blevins, PT Electrocution, subsequent encounter (Primary Dx); Other symptoms and signs involving the musculoskeletal system 04/11/2025 10:00 AM CDT Therapy [facility] Speech Therapy [address] [place] [phone] Savannah Sawant SLP Electrocution, subsequent encounter (Primary Dx); Cognitive impairment 04/09/2025 11:00 AM CDT Therapy [facility] [address] [place] [phone] Jagruti Blevins, PT Electrocution, subsequent encounter (Primary Dx); Other symptoms and signs involving the musculoskeletal system 04/05/2025 Plan of Care Documentation [facility] Speech Therapy [address] [place] [phone] 04/04/2025 9:30 AM CDT Therapy [facility] Speech Therapy [address] [place] [address]70 Savannah Sawant SLP Cognitive impairment (Primary Dx); Electrocution, subsequent encounter 04/03/2025 10:15 AM CDT Therapy [facility] Physical [facility] [address] [place] [address] Jagruti Blevins, PT Electrocution, subsequent encounter (Primary Dx); Other symptoms and signs involving the musculoskeletal system 03/28/2025 10:30 AM CDT Therapy [facility] Physical Therapy [address] [place] [address]162 Aleta Zhao, PT Electrocution, subsequent encounter (Primary Dx) 03/26/2025 11:15 AM CDT Therapy [facility] [address] [place] [address] Aleta Zhao, PT Other symptoms and signs involving the musculoskeletal system (Primary Dx); Electrocution, subsequent encounter 03/12/2025 11:00 AM CDT Therapy [facility] [address] [place] [address] [phone] Jagruti Blevins, PT Other symptoms and signs involving the musculoskeletal system (Primary Dx) 03/01/2025 1:15 PM CDT - 03/01/2025 11:59 PM CDT Hospital Encounter [address] [address] Electrocution, subsequent encounter Discharge Disposition: Discharge to home or self care 03/01/2025 8:30 AM CDT Therapy [facility] Physical Therapy [address] [place] [phone] Jagruti Blevins, PT Electrocution, subsequent encounter (Primary Dx) 03/01/2025 Plan of Care Documentation [facility] [address] [place] [phone] 02/28/2025 Telephone [facility] [address] [place] [address] Dawna Manzano 02/20/2025 3:13 PM CDT - 02/20/2025 4:08 PM CDT Emergency [facility] Emergency Department [address] [place] [phone] Electrocution (Primary Dx); Left cervical radiculopathy Discharge Disposition: Discharge to home or self care from Last 3 Months Immunizations Immunization Administration Dates Next Due Hep A, Adult 09/28/2000 Td, adsorbed 04/14/2005 Surgical History Surgery Date Site/Laterality Comments TUBAL LIGATION ARM SURGERY Right fx arm and dislocated elbow CHOLECYSTECTOMY 03/20/2024 Medical History Medical History Date Comments HLD (hyperlipidemia) Lung disease COPD GERD (gastroesophageal reflux disease) Anxiety Family History Medical History Relation Name Comments COPD Father Diabetes Father Hyperlipidemia Father Hypertension Father COPD Mother Diabetes Mother Hyperlipidemia Mother Hypertension Mother Relation Name Status Comments Father Mother Alive Social History Tobacco Use Types Packs/Day Years [...] on file Legal Sex Female 4:41 PM TRANSACTIONAL PARALEGAL Gender Identity Not on file Sexual Orientation Not on file Obstetrics History Last Filed Vital Signs Vital Sign Reading [...] 04/02/2024 3:49 PM CDT Plan of Treatment Health Maintenance Due Date Last Done Comments Breast Cancer Screening-Mammogram 1979 Cervical Cancer Screening 1979 Colon Cancer Screening-Colonoscopy 1979 Depression Screening 1979 Hepatitis C Screening 1979 Varicella Vaccines (1 of 2 - 13+ 2-dose series) 1992 Hepatitis B Screening 1997 Regular Well Visit/Exam 18-64 1997 Pneumococcal vaccine <65 (1 of 2 - PCV) 1998 DTaP/Tdap/Td Vaccine (1 - Tdap) 04/15/2005 5 Influenza Vaccine (#1) 2025 HPV Vaccines Aged Out No longer eligi ble based on patient's age to complete this topic Procedures Procedure Name Priority Date/Time Associated Diagnosis [...] PM CDT Narrative 05/03/2025 3:06 PM CDT [address] [place] [address] Echocardiogram Report Patient Name: CURRY BRITT : 1980 Study Date: 05/03/2025 1:25:29 PM Gender: F Tech: AA Location: echo room 1 Ref Provider: TRANSCRIBED ORDER, PROVIDER Height(Cm): 160 BSA: 2.29 Weight(Kg): 117.9 Quality: Good Order Provider: JACE ORDER, PROVIDER PROCEDURES: Echocardiographic Report: Transthoracic echocardiogram [...] Procedure Note Theresa Urrutia MD - 05/03/[address] [place] [address] Echocardiogram Report Patient Name: CURRY BRITT : 1980 Study Date: 05/03/2025 1:25:29 PM Gender: F Tech: Location: echo room 1 Ref Provider: TRANSCRIBED [...] Steven Vazquez D.O. AP: AP Report ID: [id number] Reading Location: [place] [address] Procedure Note Steven Vazquez, DO - 03/01/2025 [...] Electronically signed by Steven Vazquez D.O. AP: MILENA Report ID: [id number] Reading Location: [place] [address] Jorge Luis Johnson MD IMG CT PROCEDURES [...] BLOOD ORDERABLES Final R esult [facility] ([place]) 1 [facility] Department [place] [address] * eGFR (02/20/2025 2:34 PM CDT) Pathologist [facility] eGFR >90 >=60 mL/min/1. 73 m2 Comment: [...] BLOOD ORDERABLES Final R esult JOSE [facility]GDEN ([place]) 1 [facility] Department [place] [address] * (ABNORMAL) Differential, auto (02/20/2025 2:34 PM CDT) Neutrophil abs 5.34 1.50 - 6.50 K/cumm Imm gran abs 0.05 0.00 - 0.10 K/cumm [facility] ([place]) Lymphocyte abs 2.93 0.80 - 3.30 K/cumm [facility] ([place]) Monocyte abs 0.50 0.20 - 0.80 K/cumm [facility] ([place]) Eosinophil abs 0.38 0.00 - 0.50 K/cumm [facility] ([place]) Basophil abs 0.16(H) 0.00 - 0.10 K/cumm [facility] ([place]) Neutrophil pct 57.1 % [facility] ([place]) Comment: Interpretive Data Percent cell count reference ranges are not reported, since discordance with absolute values may lead to misinterpretation of CBC data. Current Interpretive Data was last revised on 2018. Imm gran pct 0.5 % [facility] ([place]) Comment: Interpretive Data Percent cell count reference ranges are not reported, since discordance with absolute values may lead to misinterpretation of CBC data. Current Interpretive Data was last revised on 2018. Lymphocyte pct 31.3 % [facility] ([place]) Comment: Interpretive Data Percent cell count reference ranges are not reported, since discordance with absolute values may lead to misinterpretation of CBC data. Current Interpretive Data was last revised on 2018. Monocyte pct 5.3 % [facility] ([place]) Comment: Interpretive Data Percent cell count reference ranges are not reported, since discordance with absolute values may lead to misinterpretation of CBC data. Current Interpretive Data was last revised on 2018. Eosinophil pct 4.1 % [facility] ([place]) Comment: Interpretive Data Percent cell count reference ranges are not reported, since discordance with absolute values may lead to misinterpretation of CBC data. Current Interpretive Data was last revised on 2018. Basophil pct 1.7 % [facility] ([place]) Comment: Interpretive Data Percent cell count reference ranges are not reported, since discordance with absolute values may lead to misinterpretation of CBC data. Current Interpretive Data was last revised on 2018. Blood 02/20/2025 2:34 PM CDT 02/20/2025 2:38 PM CDT Kush GRANT LAB BLOOD ORDERABLES Final R esult [facility] ([place] 1 [facility] Department [place] [address] * (ABNORMAL) CBC with auto differential (02/20/2025 [...] NRBC abs 0.02(H) 0.00 - 0.01 K/cumm [facility] ([place]) Blood 02/20/2025 2:34 PM CDT 02/20/2025 2:38 PM CDT Kush GRANT LAB BLOOD ORDERABLES Final R esult [facility] ([place] 1 [facility] Department [place] [address] * (ABNORMAL) Comprehensive metabolic panel (02/20/2025 2:34 PM CDT) Sodium 137 135 - 145 mmol/L Potassium, pl 3.8 3.3 - 4.9 mmol/L [facility] Chloride 105 97 - 110 mmol/L [facility]) CO2 21(L) 22 - 32 mmol/L [facility] Anion gap 11 2 - 15 mmol/L [facility] BUN 7 6 - 25 mg/dL [facility] Creatinine 0.74 0.60 - 1.10 mg/dL [facility] Glucose 117 70 - 199 mg/dL [facility]) Comment: Interpretive Data Fasting glucose [...] BLOOD ORDERABLES Final R esult JOSE [facility] ([place]) 1 [facility] [place] [address] * ECG 12 lead (02/20/2025 2:28 PM CDT) 02/20/2025 2:28 PM CDT Narrative [facility] - 02/20/2025 4:09 PM CDT Vent Rate: 83 bpm RR Interval: 717 msec [place] Interval: 162 msec QRS Duration: 83 msec QT Interval: 356 msec QTC Interval: 396 msec P-R-T [place]: 25 - 4 - 19 degrees IMPRESSION: SINUS RHYTHM LOW QRS VOLTAGE IN PRECORDIAL LEADS [QRS DEFLECTION < 1.0 mV IN CHEST LEADS] BORDERLINE ECG NO CHANGE FROM PREVIOUS TRACING NOTED Electronically Signed By: Yonas Hebert MD Kush GRANT ECG ORDERABLES Final Result Performing Organization Address [facility] Co de Phone Number [facility] from Last 3 Months Insurance [facility] Care Teams Food Trades Assistants Relationship Specialty Start Date End Date Candida Bob NP [address] [place] [address] [address] RUIZ B [address] [address] PCP - General Nurse Practitioner 02/20/25
--- OUTSIDE RECORDS SUMMARY | 2025-05-22 15:07 | XMS_ITS | Encounter Summary ---
Author Organization [facility] Address [address] [place] [address] Care Team Providers Care Purchasing Engineer Name Role Phone Candida Bob CUPOLA LINER HELPER Primary Care Provider Reason for Visit * Reason Comments PT Treatment * Consultation (Routine) - Authorized Specialty Diagnoses / Procedures Referred By Contraheem t Referred To Contact Physical Therapy Diagnoses Electrocution, subsequent encounter Jorge Luis Johnson MD [address] [place] [address] [address] RUIZ [address] [address] Phone: tel: fax: [facility] [address] [place] [id number] Phone: tel: fax: Referral ID Status Reason Start Date Expiration Date Visits Requested Visits Authorized [id number] Authorized Evaluate and Treat 02/26/2025 03/12/2026 12 11 Encounter Details Date Type Department Care Team (Late st Contact Info) Description 05/22/2025 8:15 AM CDT Therapy [facility] [address] [place] [id number] Jagruti Blevins PT Electrocution, subsequent encounter (Primary Dx); Other symptoms and signs involving the musculoskeletal system Social History Tobacco Use Types Packs/Day Years [...] you are drinking? Patient does not drink 4 Frequency of Binge Drinking Not on file 03/08 Personal Safety Answer Date Recorded Have you ever been in or are you currently in a harmful physical or emotional relationship or is someone making you feel afraid or unsafe? 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 Fax back to: [phone] Physician Signature: Date: Physical Therapy Progress Note Patient: Ivette Britt 1980 Diagnosis: Electrocution, subsequent encounter (T75.4XXD) Onset Date: 02/19/25 Subjective: Pt reports she feels she is getting stronger but she still has pain and numbness/tingling. States she is trying to do more around home but still gets fatigued and has to sit and rest. The pt feels Pain: Current - 5/10 neck/LUE/L LE Worst - 6/10 neck/L UE, back, L LE (Eval: 05/17) Best - 5/10 neck/LUE/L LE (same) Location/Description: Constant, burning and tingling from the L side of the neck and runs all the way down the L UE to the hand/fingers (feels it the most in the 1st, 2nd, 3rd fingers) Relieving factors: ice, keeping the arm supported. Her low back has been hurting, going down her LLE. Her LLE wants to give way. It has been going tingly/numb and then gives way. Describes as feelingasleep. (Same) Aggravating factors/Functional limitations: reaching over head, reaching behind her back, driving, sleep disturbance, lifting medium to heavy weight, donning/doffing a shirt/hoodie Progression: fixing her hair, L sidelying Objective: Posture: rounded, elevated shoulders and fwd head posture Cervical AROM Comments Flexion 50?? Eval: 43?? * *pain Extension 46?? Eval: 36?? * *pain R L Side Bending 33??* (same) 35?? * Eval: 27??* *pain on L Rotation 61?? * 42?? * (same) *pain on L AROM MMT AROM MMT Shoulder R R L L Comments Flexion 145?? 5-/ 140?? * Eval: 112?? 03/12* Eval: 5-/* *pain Abduction 145?? 03/12 110?? * Eval: 104?? 03/12* *pain Extension 52?? 03/12 35?? Eval: 32?? 5-/5* Eval: 4+ to 5-/5* *gave due to pain External Rotation 87?? 03/12 55?? 5-/5 Eval: 4+/5 Internal Rotation 61?? 5 50?? 5 Rhomboids NT/5 NT/5 Middle Trapezius NT/5 NT/5 MMT L R Comments Hip Flexion 5-/5 Eval: 2* 5-/5 Eval: 3* *Limited range, burning Hip Extension 5-/5* Eval: nt 4+/5* Eval: nt *pain Hip Abduction 5-/5* Eval: defer 4+/5* Eval: defer *pain Knee Extension /5 Eval: 4- 5/5 Eval: 4+ Cues for TKE, states painful Knee Flexion 5/5 Eval: 4 4+/5 Eval: 4 Ankle PF defer defer Ankle DF 5 5 ROM KNEE L R Extension 0 0 Flexion 120 115 Gait: PN: without AD - slight improved pace, decreased Trendelenberg R side w L hip drop, no loss of balance. Eval: Supination, tending to land midfoot lateral aspect, Trendelenberg R side w L hip drop. Decreased speed, reaching out for the wall without device Flexibility: Pectoral Lengths - NT, pt started getting dizzy/light headed when supine and needed tosit up. Manual Exam: Tender to palpation along entire L upper trap, distal levator scapula, and around medial epicondyle of the L elbow. (Same) Special Tests: Will test at a later date, unable to tolerate today FTSTS: 19.35 sec with UE assist (Eval: 46.24 sec with UE assist) With increased burning in LLE Functional Outcome Survey: NDI 76% disability Treatment Provided: *indicated not performed today Nustep L5 x 6 min UE/LE Below not performed this date due to reassessment: // bars: Heel/toes raises x15 each Marching x15 bilat Ext x15 Abd x15 Knee flexion x15 Tandem balancing 30 R/L, L/R Seated: Liberian ball roll out x15 fwd, R/L AAROM bilat shoulder flex w/2# wand x10 AAROM bilat lift off #2 x10 Supine: Clamshell red band x15 BKFO red band x15 Marching red band x15 Bridges x15 SAQ #2 x15 Manual: * STM quad, ITB x10' total K-tape applied: 2 long I strips, anchored at delt in figure 8 formation, down to forearm. Instructed to leave on for several days unless redness/irritation of skin occurs. Instructed not to apply external creams such as Icy-hot on top of tape to prevent adverse reaction. Verbalized understanding. --Did not retape, pt had a skin reaction Current HEP: Access Code: [email or web address] URL: [email or web address] Exercises - Supine Shoulder Flexion AAROM with Dowel - 2 x daily - 1 sets - 10 reps - 3-5 sec hold - Standing Shoulder Abduction AAROM with Dowel - 2 x daily - 1 sets - 10 reps - 3 sec hold - Seated Scapular Retraction - 2 x daily - 1-2 sets - 10-15 reps - 3-5 seconds hold Access Code: [email or web address] Hip abd, ext, march Standing knee flexion Heel raises Assessment: Pt tolerated treatment well, leaving in pleasant affect voicing no questions. The pt demonstrates good improvement with cervical flex/ext/L SB AROM, L shoulder flex/abd/ext AROM, L shoulder flex/ext/ER MMT, and excellent improvement with bilat LE MMT. She has significantly improved on the FTSTS. Pt also notes slight overall improvement with L UE/L LE pain. She has remaining deficits with cervicalflex/L rot AROM, L shoulder abd/ext/IR/ER AROM, L hip ext/abd and L knee flex MMT, balance, gait, and pain. Pt will benefit from continued skilled therapy services to address ongoing goals and progress as tolerated. Plan Continue skilled therapy 2x/week for 10 additional visits (21 total) Start Time: 816 End Time: 900 Jagruti Blevins PT documented in this encounter Plan of Treatment Not on file documented as of this encounter Visit Diagnoses Diagnosis Electrocution, subsequent encounter- Primary Other symptoms and signs involving the musculoskeletal system documented in this encounter Care Teams Purchasing Engineer Relationship Specialty Start Date End Date Candida Bob NP [address] [facility] [address] RUIZ B [address] [address] PCP - General Nurse Practitioner 02/20/25 documented as of this encounter
--- NOTE | 2025-05-22 15:54 | ED_ITS ---
HPI - Extremity Injury (Upper) General Chief Complaint: Extremity Injury, Upper Stated Complaint: Left Hand Injury Time Seen by Provider: 05/22/25 15:00 Source: patient, family and RN notes reviewed Mode of arrival: ambulatory Limitations: no limitations History of Present Illness HPI narrative: 44-year-old female presents Express Care complaining of left hand injury approximately 1 hour ago. Patient says she dropped a of drawer on her left hand. Patient reports pain and swelling near the 5th and 4th metacarpal. Patient says she has a previous fractured her 5th metacarpal long time ago. Patient denies any other injuries, numbness or tingling, or any other symptom Related Data Home Medications ?Medication ?Instructions ?Recorded ?Confirmed ?Last Taken ?Type albuterol sulfate 90 mcg/actuation inhalation 05/22/25 Unknown History aerosol inhaler atorvastatin 80 mg tablet mg 05/22/25 Unknown History cetirizine 10 mg tablet mg 05/22/25 Unknown History fluticasone propionate 50 intranasal 05/22/25 Unknown History mcg/actuation nasal spray,suspension loratadine 10 mg tablet mg 05/22/25 Unknown History umeclidinium 62.5 mcg/actuation inhalation 05/22/25 Unknown History blister powder for inhalation (Incruse Ellipta) Allergies Allergy/AdvReac Type Severity Reaction Status Date / Time Penicillins Allergy Severe Anaphylaxis Verified 05/22/25 15:11 ibuprofen Allergy Intermediate Hives Verified 05/22/25 15:11 Sulfa (Sulfonamide Allergy Intermediate Hives Verified 05/22/25 15:11 Antibiotics) sulfamethoxazole Allergy Intermediate Hives Verified 05/22/25 15:11 trimethoprim Allergy Intermediate Hives Verified 05/22/25 15:11 Review of Systems Review of Systems: CONSTITUTIONAL: Denies fever, chills, or sweats. EYES: Denies visual changes, redness, or discharge. ENT: Denies rhinorrhea, congestion, sore throat, or otalgia. CARDIOVASCULAR: Denies chest pain, palpitations, or edema. RESPIRATORY: Denies cough or dyspnea. GASTROINTESTINAL: Denies abdominal pain, nausea, vomiting, or diarrhea. GENITOURINARY: Denies dysuria or hematuria. SKIN: Denies rash, wound, or itching. MUSCULOSKELETAL: Denies back pain, joint pain, or myalgia. Positive for injury and swelling NEUROLOGIC: Denies headache, numbness, or weakness. PSYCHIATRIC: Denies anxiety or depression. All other systems reviewed are negative, except as documented in HPI. PMFSH Comments At the time of my signature, I reviewed and agree with the nursing past medical, surgical, social, and family history. There is no relevant family history pertinent to the patient complaint. Exam Narrative: GENERAL: This is a well-nourished, well-developed adult, in no apparent distress. They are non ill-appearing, nontoxic appearing. HEAD: normocephalic, atraumatic. EYES: Sclera clear/white. Vision is grossly intact. Conjunctiva normal. Extraocular movement intact. EARS: External ears normal Hearing grossly intact. NOSE: External nose normal THROAT: Mucous membranes moist NECK: Neck supple CARDIOVASCULAR: Regular rate and rhythm RESPIRATORY: Respiratory rate normal, respiratory effort nonlabored, no respiratory distress NEURO: awake, alert, and oriented to person, place and time. There were no obvious focal neurologic abnormalities. EXTREMITIES: Left hand: No obvious deformity. There is swelling present to the dorsal surface of the hand near the 4th and 5th metacarpal. Limited range of motion to fingers due to swelling. Full range of motion left wrist. Tenderness to palpation near the 4th and 5th metacarpal. Capillary refill less than 3 seconds. Left radial Pulse 2 +palpable. Normal sensation. Neurovascular status intact distal injury. Patient is able to wiggle her fingers. Patient cannot make a complete fist or close her fingers all doing a thumbs-up sign do swelling. Patient can make the okay sign and stop sign. Radial ulnar nerve distribution intact. BACK: Nontender without deformity. Course Course Emergency Course: Portions of this record may have been created with voice recognition software Level of Care: Express Care Visit Vital Signs Vital signs: Vital Signs Temperature 97.8 F 05/22/25 15:06 Pulse Rate 89 05/22/25 15:06 Respiratory Rate 18 05/22/25 15:06 Blood Pressure 147/95 H 05/22/25 15:06 Pulse Oximetry 99 05/22/25 15:06 Oxygen Delivery Room Air 05/22/25 15:06 Temperature 97.8 F 05/22/25 15:06 Pulse Rate 89 05/22/25 15:06 Respiratory Rate 18 05/22/25 15:06 Blood Pressure 147/95 H 05/22/25 15:06 Pulse Oximetry 99 05/22/25 15:06 Oxygen Delivery Room Air 05/22/25 15:06 Reviewed MDM - Extremity Injury (Upper) MDM Narrative Medical decision making narrative: X-ray left hand negative for any fractures or acute findings. Likely patient has crush injury left hand drop in a drawer on it. Patient given ice and also Rey wrap for compression. Discussed physical exam findings. Advised supportive measures and signs/symptoms to go to the ER. Pt is appropriate for outpt treatment and f/u. Differential Diagnosis Differential diagnosis: Likely other (Hand fracture, finger fracture of finger sprain, and sprain, crush injury) Critical Care Time Critical Care Time Critical Care Time: No Discharge Plan Discharge Clinical Impression: Crushing injury of hand, left Qualifiers: Encounter type: initial encounter Qualified Code(s): S67.22XA - Crushing injury of left hand, initial encounter Patient Disposition: Home Condition: Stable Instructions: Hand Sprain (ED) Additional Instructions: X-ray of your left hand is negative for any fractures or acute findings. Rest and elevate the hand Apply ice 15-20 minute intervals several times a day Keep it wrapped with REY or use a soft ankle splint Motrin 600mg -800mg every 8 hours, alternate with Tylenol 1000mg every 8 hours as needed Follow up with your primary care provider or orthopedist needed in 1-2 weeks pain is persisting. Please go to the ER if you develops excruciating pain, cold or blue fingers, numbness or tingling, or any other serious concerns. Patient Language: Grenadian Prescriptions: No Action atorvastatin 80 mg tablet cetirizine 10 mg tablet albuterol sulfate 90 mcg/actuation HFA aerosol inhaler INHALATION fluticasone propionate 50 mcg/actuation spray,suspension INTRANASAL loratadine 10 mg tablet Incruse Ellipta 62.5 mcg/actuation blister with device INHALATION Follow-up/Referrals: Candida Bob RN [Primary Care Provider] - Chuck Vora MD [Physician] - Time of Disposition: 15:50
== END 2025-05-22 15:57 | disposition home or self-care (01) ==
PROVIDERS: PCP Nurse Practitioner Family
DX: S67.22XA Crushing injury of left hand, initial encounter (principal); W20.8XXA Other cause of strike by thrown, projected or falling object, initial encounter
CPT/HCPCS: 73130; 99203; G0463